=== PATIENT | male | born 1965 | race African-American/Black ===

== ENCOUNTER 2018-11-04 22:55 | Emergency (ER) | payer OTHER, MEDICAID ==
[~2018-11-04] VITALS: Ht 177.8 cm; Wt 85.0 kg
[2018-11-04 23:25] VITALS: BP 145/98
== END 2018-11-04 23:51 | disposition home or self-care (01) ==
LOC: ER 22:55
DX: Z02.89 Encounter for other administrative examinations (principal); R03.0 Elevated blood-pressure reading, without diagnosis of hypertension
CPT/HCPCS: 99281

== ENCOUNTER 2020-09-19 01:44 | Emergency (ER) | payer MEDICAID ==
[~2020-09-19] VITALS: Ht 190.5 cm; Wt 120.0 kg
[2020-09-19 01:46] VITALS: BP 155/121
[2020-09-19] MEDS ORDERED: MORPHINE SULFATE 4 MG/ML CPJ (NOT FOR IM USE) IV STA (02:03)
[2020-09-19] MEDS ORDERED: ONDANSETRON HCL 4MG/2ML INJ IV STA (02:03)
[2020-09-19] MEDS ORDERED: ASPIRIN 81MG TABLET PO ONE (02:15)
[2020-09-19] MEDS ORDERED: NITROGLYCERIN OINT 1GM/INCH UDPKT TD ONE (02:15)
== END 2020-09-19 02:24 | disposition left against medical advice (07) ==
LOC: ER 01:44
DX: R07.2 Precordial pain (principal); E11.9 Type 2 diabetes mellitus without complications; N40.0 Benign prostatic hyperplasia without lower urinary tract symptoms
CPT/HCPCS: 93005; 99283

== ENCOUNTER 2023-03-24 17:05 | Emergency (ER) | payer MEDICAID ==
[~2023-03-24] VITALS: Ht 188 cm; Wt 113.0 kg
[2023-03-24 17:08] VITALS: BP 154/102; PULSE 102; RESP 16; TEMP 98.8; O2SAT 97
[2023-03-24] MEDS ORDERED: LIDO700A15 TP (22:02)
[2023-03-24] MEDS ORDERED: NAPR-1176 MT (22:02)
== END 2023-03-24 22:20 | disposition left against medical advice (07) ==
LOC: ER 17:05
DX: M79.603 Pain in arm, unspecified (principal); E11.9 Type 2 diabetes mellitus without complications; I10 Essential (primary) hypertension
CPT/HCPCS: 71045; 99283

== ENCOUNTER 2024-12-09 18:08 | Emergency (ER) | payer MEDICAID, OTHER ==
[~2024-12-09] VITALS: Ht 180.3 cm; Wt 86.0 kg
[~2024-12-09 18:08] MED LIST: LIDO-53 TP; NAPR-1176 MT
[2024-12-09 18:11] VITALS: O2SAT 96
[2024-12-09] MEDS: SODIUM CHLORIDE 0.9% 1,000 ML IV ONE (19:17)
[2024-12-09 20:43] LABS: BASOPHILS % 0.5 % (0.0-2.0); EOSINOPHILS % 1.9 % (0.0-5.0); HEMATOCRIT. 39.9 % (42.0-52.0); HEMOGLOBIN. 12.8 g/dL (14.0-18.0); LYMPHOCYTES % 39.7 % (20.0-50.0); MEAN PLATELET VOLUME 8.9 fl (7.4-10.4); MONOCYTES % 9.4 % (2.0-8.0); NEUTROPHILS % 48.5 % (40.0-76.0); PLATELET 242 x1000/uL (130-400); RED BLOOD CELL COUNT 4.94 mill/uL (4.7-6.1); RED CELL DISTRIBUTION WIDTH 14.9 % (11.6-14.6)
[2024-12-09 20:57] LABS: CREATININE 1.1 mg/dL (0.6-1.3); TROPONIN I HIGH SENSITIVITY 26 ng/L (3.0-53); UREA NITROGEN BLOOD 10 mg/dL (9-23)
[2024-12-09 20:58] LABS: ETHANOL BLOOD < 10 mg/dL (<10)
[2024-12-09 20:59] LABS: ASPARTATE AMINOTRANSFERASE 15 IU/L (<34); BILIRUBIN DIRECT < 0.1 mg/dL (<=3.0)
[2024-12-09 21:00] LABS: BILIRUBIN TOTAL 0.2 mg/dL (0.1-1.0); PROTEIN TOTAL 6.4 g/dL (6.0-8.3)
[2024-12-09 22:08] LABS: TROPONIN I HIGH SENSITIVITY 25 ng/L (3.0-53)
[2024-12-09] MEDS ORDERED: ONDANSETRON HCL 4MG/2ML INJ IV PRN (23:00)
[2024-12-09] MEDS ORDERED: MAGNESIUM/ALUMINUM HYDROXIDE/SIMETHICONE 30ML UDC PO PRN (23:00)
[2024-12-09] MEDS ORDERED: HYDRALAZINE 20MG/ML VIAL IV PRN (23:00)
[2024-12-09] MEDS ORDERED: LACTULOSE 20G/30ML UDC PO PRN (23:00)
[2024-12-09] MEDS ORDERED: MORPHINE SULFATE 2 MG/ML INJ (NOT FOR IM USE) IV PRN (23:00)
[2024-12-09] MEDS ORDERED: BISACODYL 10MG SUPP PR PRN (23:00)
[2024-12-09] MEDS ORDERED: ACETAMINOPHEN 325MG TABLET PO PRN ×2 (23:00)
[2024-12-09] MEDS ORDERED: CEFTRIAXONE 1GM/50ML 50 ML IV SCH (23:00)
[2024-12-09] MEDS ORDERED: SENNOSIDES/DOCUSATE SOD 8.6/50MG TABLET PO SCH (23:15)
[2024-12-09] MEDS ORDERED: LACTATED RINGERS 1,000 ML IV SCH (23:15)
[2024-12-09] MEDS ORDERED: TAMSULOSIN HCL 0.4MG SR CAPSULE PO SCH (23:15)
[2024-12-09] MEDS: CEFTRIAXONE 1GM/50ML 50 ML IV ONE (23:17)
[2024-12-09] MEDS: MORPHINE SULFATE 4 MG/ML INJ (FOR IV/IM USE) IV ONE (23:17)
[2024-12-09] MEDS ORDERED: IOHEXOL-300 100 ML BOTTLE ONE (23:23)
[2024-12-10 00:16] VITALS: BP 134/67; PULSE 87; RESP 18; O2SAT 97
[2024-12-10] MEDS ORDERED: POLYETHYLENE GLYCOL 3350 (17GM) 1 DOSE PACK PO SCH (09:00)
[2024-12-10] MEDS ORDERED: HEPARIN 5000 UNITS/ML VIAL SUBCUT SCH (09:00)
== END 2024-12-10 00:16 | disposition short-term general hospital (02) ==
LOC: ER 18:08 → CMPBEDREQ 12-10 07:38
DX: N12 Tubulo-interstitial nephritis, not specified as acute or chronic (principal); I25.2 Old myocardial infarction; I10 Essential (primary) hypertension; N40.0 Benign prostatic hyperplasia without lower urinary tract symptoms; E11.9 Type 2 diabetes mellitus without complications; Z79.1 Long term (current) use of non-steroidal anti-inflammatories (NSAID); Z86.73 Personal history of transient ischemic attack (TIA), and cerebral infarction without residual deficits; Z98.890 Other specified postprocedural states
CPT/HCPCS: 80076; 80048; 80320; 83690; 85025; 84484; 36415; 71045; 74177; 96361; 96365; 96375; 99285; Q9967; J0696; J2270; J7030; G0480